=== PATIENT | female | born 1995 | race Caucasian/White ===

== ENCOUNTER 2024-03-20 11:55 | Emergency (ER) | payer OTHER, SELFPAY ==
[2024-03-20 12:03] VITALS: BP 136/90; PULSE 77; O2SAT 98; BMI 60.1
--- NOTE | 2024-03-20 13:10 | ED.LOWEXI1 ---
HPI HPI - Extremity Injury (Lower) General Chief Complaint: Extremity Injury, Lower Stated Complaint: LOWER EXTREMITY INJURY Time Seen by Provider: 03/20/24 12:41 Source: patient Mode of arrival: walk-in Limitations: no limitations History of Present Illness HPI Narrative: This patient is here complaining of pain over the dorsum and plantar surface of her left foot. 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 She does wear sketchers shoes for support. She does not have any injury or trauma or event to cause the pain. She does not have any other joint swelling or problems. She is not diabetic. She not running a fever. There is no discomfort in the Achilles or the heel area is primarily in the forefoot. There is no history of any foreign body lacerations or injuries. Related Data Allergies Allergy/AdvReac Type Severity Reaction Status Date / Time No Known Drug Allergies Allergy Verified 03/20/24 12:05 Opioid HPI Opioid Management Most Recent Pain and Opioid Data: Last ED Pain Assessment 03/20/24 12:23 Exam Narrative Exam Narrative: Awake alert examined in a sitting position. Overall inspection of her left foot and ankle shows no redness swelling edema or evidence of foreign body or recent wounds or infection. Starting at the heel area there is no tenderness to percussion over the heel or near the Achilles area. Movement of the toes does not reproduce any discomfort and it certainly does not look like a gout situation. The pain is nonspecific pretty much over her arch. She does not really have a flat arch but there is no real other abnormal findings. X-rays will be done. Constitutional Vital Signs, click to edit/add: Last Vital Signs Pulse 77 03/20/24 12:03 Resp 18 03/20/24 12:03 BP 136/90 03/20/24 12:03 Pulse Ox 98 03/20/24 12:03 O2 Del Method Room Air 03/20/24 12:03 Course Vital Signs Vital signs: Vital Signs Pulse Rate 77 03/20/24 12:03 Respiratory Rate 18 03/20/24 12:03 Blood Pressure 136/90 03/20/24 12:03 Pulse Oximetry 98 03/20/24 12:03 Oxygen Delivery Method Room Air 03/20/24 12:03 Pulse Rate 77 03/20/24 12:03 Respiratory Rate 18 03/20/24 12:03 Blood Pressure 136/90 03/20/24 12:03 Pulse Oximetry 98 03/20/24 12:03 Oxygen Delivery Method Room Air 03/20/24 12:03 MDM - Extremity Injury (Lower) MDM Narrative Medical decision making narrative: Preliminary review does not show anything grossly abnormal she does have a heel spur but that is not the area of her discomfort. It may just be simple foot strain. Will have her follow-up with podiatry. She does a lot of standing work so we will have her ice and elevate this for at least 24 hours Discharge Plan Discharge Stand Alone Forms: Portal Instructions Chief Complaint: Extremity Injury, Lower Clinical Impression: Strain of foot, left Patient Disposition: Home, Self-Care Time of Disposition Decision: 14:04 Print Language: [place]ian Additional Instructions: Stay off feet for 24 hours. Follow-up with local podiatry Dr. Wero Hauser if necessary. May use anti-inflammatories or Toradol Referrals: Physician,Non-Staff, MD [Primary Care Provider] - 1 week
--- NOTE | 2024-03-20 13:11 | XR_ITS ---
The [address] [address] Patient Name: ELIANA RUTH MRN: [id number] date: 1995 Sex: F Assigned Patient Location: ER Current Patient Location: Accession/Order Number: [id number] Exam Date: 03/20/2024 13:40 Report Date: 03/20/2024 15:01 At the request of: PENNY EVANS Procedure: XR foot RT min 3V EXAM: XR foot RT min 3V HISTORY: Pain in forefoot COMPARISON: None. FINDINGS/IMPRESSION: 1. No acute fracture or dislocation 2. Normal alignment of the bones of the foot. No significant joint degeneration. There is soft tissue swelling about the forefoot. 3. Calcaneal plantar enthesophyte. 4. No ankle joint effusion. Electronically authenticated by: NED REEDER Date: 03/20/2024 15:01
[2024-03-20 14:19] VITALS: BP 108/57; PULSE 67; O2SAT 100
== END 2024-03-20 14:21 | disposition home or self-care (01) ==
PROVIDERS: Emergency Provider Emergency Medicine Emergency Medical Services
DX: S96.912A Strain of unspecified muscle and tendon at ankle and foot level, left foot, initial encounter (principal)
CPT/HCPCS: 73630; 99283